=== PATIENT | male | born 1960 | race Caucasian/White ===

== ENCOUNTER 2021-12-31 12:00 | Outpatient (CLI) | payer OTHER ==
[2021-12-31 13:46] LABS: Anion Gap 12 mmol/L (10-20); BUN (Urea Nitrogen) 19 mg/dL (8.4-25.7); Calc. Creatinine Clearance 0 mL/min (70-130); Calcium 9.9 mg/dL (7.8-10.44); Carbon Dioxide 33 mmol/L (23-31); Chloride 102 mmol/L (98-107); Glucose 92 mg/dL (80-115); Potassium 3.7 mmol/L (3.5-5.1); Sodium 143 mmol/L (136-145)
[2021-12-31 19:54] LABS: SARS-CoV-2 PCR by NAA Not Detected (NotDetected)
== END 2021-12-31 12:01 | disposition home or self-care (01) ==
LOC: CSHLAB 12:00
PROVIDERS: ATTEND Internal Medicine Gastroenterology
DX: Z01.818 Encounter for other preprocedural examination (principal); Z20.822 Contact with and (suspected) exposure to COVID-19; K42.9 Umbilical hernia without obstruction or gangrene; C61 Malignant neoplasm of prostate; E66.01 Morbid (severe) obesity due to excess calories
CPT/HCPCS: 80048; 93005; 93010; U0003; U0005

== ENCOUNTER 2022-05-29 10:43 | Outpatient (CLI) | payer OTHER | END 2022-05-29 10:44 | disposition home or self-care (01) | LOC: CSHLAB 10:43 | PROVIDERS: ATTEND Internal Medicine Gastroenterology | DX: Z20.822 Contact with and (suspected) exposure to COVID-19 (principal) | CPT/HCPCS: 87811 ==

== ENCOUNTER 2022-06-03 06:01 | Day surgery (SDC) | payer OTHER ==
[2022-05-30 14:14] VITALS: BMI 35.6
[2022-06-03] MEDS ORDERED: PROPOFOL 40 ML ONE (07:03)
== END 2022-06-03 08:55 | disposition home or self-care (01) ==
LOC: CSHSDC 06:01
PROVIDERS: ATTEND Internal Medicine Gastroenterology
DX: Z12.11 Encounter for screening for malignant neoplasm of colon (principal); D12.2 Benign neoplasm of ascending colon; K63.5 Polyp of colon; K57.30 Diverticulosis of large intestine without perforation or abscess without bleeding; K64.9 Unspecified hemorrhoids; K21.9 Gastro-esophageal reflux disease without esophagitis; I10 Essential (primary) hypertension; E66.9 Obesity, unspecified; Z68.35 Body mass index [BMI] 35.0-35.9, adult; Z86.73 Personal history of transient ischemic attack (TIA), and cerebral infarction without residual deficits; E78.5 Hyperlipidemia, unspecified; R73.03 Prediabetes; Z20.822 Contact with and (suspected) exposure to COVID-19; Z79.82 Long term (current) use of aspirin; Z79.899 Other long term (current) drug therapy
CPT/HCPCS: 88305; J2704

== ENCOUNTER 2023-03-10 08:03 | Outpatient (CLI) | payer BC ==
[2023-03-10] MEDS ORDERED: Magnevist 469MG/ML 20 ML VIAL ONE (16:56)
== END 2023-03-10 08:04 | disposition home or self-care (01) ==
LOC: CSHMRI 08:03
PROVIDERS: ATTEND Urology
DX: C61 Malignant neoplasm of prostate (principal); N40.2 Nodular prostate without lower urinary tract symptoms
CPT/HCPCS: 72197; 82565; A9579

== ENCOUNTER 2023-07-01 10:53 | Outpatient (CLI) | payer BC | END 2023-07-01 10:54 | disposition home or self-care (01) | LOC: CSHRAD 10:53 | PROVIDERS: ATTEND Chiropractor | DX: M53.87 Other specified dorsopathies, lumbosacral region (principal); M53.86 Other specified dorsopathies, lumbar region; M47.816 Spondylosis without myelopathy or radiculopathy, lumbar region | CPT/HCPCS: 72100 ==